=== PATIENT | female | born 1940 | race Caucasian/White ===

== ENCOUNTER → 2017-01-05 | Outpatient (CLI) | payer OTHER, BC ==
--- NOTE | ~2017-01-05 | US37 ---
[facility] A Service of [facility] RADIOLOGY TEXT RESULTS PATIENT: ZAY BARNETT LOCATION: [facility] : 38 UNIT #: [id number] AGE: [address]: JOSIE YATES MD SEX: F ORDER DR: [id number] [place] [id number] O MR#: [id number] Acc #: [id number] NAME: ZAY BARNETT : 1940 SEX: F STUDY DATE/TIME: 01/05/2017 13:38 UNIT: [facility] ROOM: STUDY DESCRIPTION: US Carotid W/Doppler Bilateral Attending Physician: Josie Yates M.D. Referring Physician: Josie Yates M.D. Ordering Physician: Josie Yates M.D. Primary Care Physician: Kem Oviedo M.D. MEDICAL IMAGING REPORT This report is preliminary unless electronic signature is present. EXAM Carotid ultrasound HISTORY Atherosclerotic disease. Recent confusion, memory loss, loss of balance. FINDINGS Ultrasound examination of the carotid arteries was performed with nolasco-scale, color Doppler and spectral Doppler evaluation. There is minimal plaque in the carotid bulbs bilaterally. Peak systolic velocities in the internal carotid arteries are 67 cm/sec on the right and 77 cm/sec on the left, indicating no hemodynamically significant carotid artery stenosis by NASCET criteria. There is antegrade flow in both vertebral arteries. The external carotid arteries are patent bilaterally. IMPRESSION 1. No hemodynamically significant carotid artery stenosis by NASCET criteria. 2. Minimal plaque in the carotid bulbs bilaterally. 3. Antegrade flow in both vertebral arteries. Dictated by... Eleazar Torres M.D. THIS IS AN ELECTRONICALLY VERIFIED REPORT Eleazar Torres M.D. at 01/05/2017 10:50 PM DFMelia/donnell TD: 01/05/2017 15:42 [facility] A Service of [facility] RADIOLOGY TEXT RESULTS PATIENT: ZAY BARNETT [facility]: [id number] : 39 UNIT #: [id number] AGE: [address]: JOSIE YATES MD SEX: F ORDER DR: JOB #: [id number] MEDICAL IMAGING REPORT Page 1 of 1
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
== END | disposition home or self-care (01) ==
LOC: SMRI 12:03
DX: R41.3 Other amnesia (principal); R94.02 Abnormal brain scan; I65.29 Occlusion and stenosis of unspecified carotid artery; R42 Dizziness and giddiness; I65.23 Occlusion and stenosis of bilateral carotid arteries; G93.9 Disorder of brain, unspecified; H44.521 Atrophy of globe, right eye; H54.61 Unqualified visual loss, right eye, normal vision left eye
CPT/HCPCS: 70551; 93880